=== PATIENT | male | born 2000 | race Caucasian/White ===

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

== ENCOUNTER 2021-12-26 12:30 | Emergency (ER) | payer BC ==
[~2021-12-26] VITALS: Ht 177.8 cm; Wt 86.4 kg
[~2021-12-26 12:30] MED LIST: ACNE MEDICATION
[2021-12-26 12:50] VITALS: TEMP 98.5
[2021-12-26 14:37] VITALS: BP 142/85; PULSE 87
== END 2021-12-26 14:41 | disposition home or self-care (01) ==
LOC: COL.ER 12:30
DX: R07.89 Other chest pain (principal); Z20.822 Contact with and (suspected) exposure to COVID-19; Z28.310 Unvaccinated for COVID-19